=== PATIENT | male | born 1970 | race Caucasian/White ===

== ENCOUNTER 2016-10-29 08:32 | Day surgery (SDC) | payer OTHER ==
[2016-10-23 16:07] VITALS: BMI 24.0
[~2016-10-29] VITALS: Ht 170.2 cm; Wt 70.9 kg
[~2016-10-29 08:32] MED LIST: CEFAZOLIN 2000 MG/60 ML D5W IV SCH; CETI10TA84 PO; FOLI1TAB7 PO; IBUP-103 PO; LACTATED RINGER'S 1000ML 1,000 ML IV SCH; LISI-461 PO; PANT40TA PO; SUCR1TAB29 PO
[2016-10-29] MEDS ORDERED: COLE625T PO (09:01)
[2016-10-29 09:02] VITALS: BP 158/94; PULSE 61; TEMP 37; O2SAT 99; Ht 170.2 cm; Wt 70.9 kg
[2016-10-29 09:17] LABS: BUN/CREATININE RATIO 12.1 (10-20); CALCIUM 8.9 mg/dl (8.5-10.1); CREATININE 1.4 mg/dl (0.60-1.40)
--- NOTE | 2016-10-29 09:37 | History & Physical Bridge Note ---
H&P Re-Evaluation Bridge Note: I have examined the patient, reviewed the History & Physical and in the interval since the performance of the History & Physical I have noted the following changes of clinical significance: No changes noted
[2016-10-29] MEDS ORDERED: ONDANSETRON INJ 2 MG/ML 2 ML VIAL IV PRN (10:00)
[2016-10-29] MEDS ORDERED: EpHEDrine SULFATE INJ 50 MG/ML AMP IV PRN (10:00)
[2016-10-29] MEDS ORDERED: ATROPINE SULFATE 0.1 MG/ML 5ML SYR IV PRN (10:00)
[2016-10-29] MEDS ORDERED: FENTANYL CITRATE INJ 50 MCG/1 ML 2 ML VIAL IV PRN (10:00)
[2016-10-29] MEDS ORDERED: FENTANYL CITRATE INJ 50 MCG/1 ML 2 ML VIAL ONE ×2 (10:15→11:14)
[2016-10-29] MEDS ORDERED: MIDAZOLAM HCL 1 MG/ML 2ML VIAL ONE (10:15)
[2016-10-29] MEDS ORDERED: LIDOCAINE HCL 2% 2 ML VIAL (20MG/ML) ONE (10:15)
[2016-10-29] MEDS ORDERED: PROPOFOL IV EMULSION 10 MG/ML 20 ML VIAL IV ONE (10:15)
[2016-10-29] MEDS ORDERED: ONDANSETRON INJ 2 MG/ML 2 ML VIAL ONE (10:15)
[2016-10-29] MEDS ORDERED: DEXAMETHASONE SOD INJ 4 MG/ML VIAL ONE (10:15)
[2016-10-29] MEDS ORDERED: CONRAY 30% 150ML BOTTLE ONE (10:59)
[2016-10-29] MEDS ORDERED: GLYCOPYRROLATE INJ 0.2 MG/ML VIAL ONE (11:09)
[2016-10-29] MEDS ORDERED: BELLADONNA/OPIUM SUPP 60 MG SUPP PR ONE (11:21)
--- NOTE | 2016-10-29 11:37 | [facility] Operative Report ---
Operative Report Operative Date Oct 29, 2016. Pre-Operative Diagnosis Left hydronephrosis Post-Operative Diagnosis same, Ureteropelvic juntion obstruction Procedure(s) Performed cysto, left retrograde pyelogram, left ureteroscopy , left stent placement Surgeon Dr Alonso Pulling Unit Operator Surgeon(s) none Estimated Blood Loss 2ML Findings smooth tapered narrowing at left UPJ, left hydronephrosis, laterally displaced UOs Fluids 600mL Specimens NONE Drains 6 fr 24 centimeter doubel J stent Anesthesia LMA Complication(s) None Disposition Recovery Room / PACU Indications left new hydronephrosis and renal insufficiency of unknown etiology Description of Procedure Patient was given LMA general anesthesia and placed in lithotomy position. His genitals were prepped and draped in sterile fashion. Time out held with team. I placed a 21 fr rigid cystoscope to bladder. The urethra is remarkable for a 20 fr bulbar thick stricture. Scope passes with pressure. The prostate is small. The UOs are laterally displaced bilaterally. I placed a bentson wire up left distal ureter followed by a 5 fr open ended. I performed a left retrograde pyelogram with dye. His distal mid and upper ureter is plump but smooth, there is a 20mm narrowing at the UPJ with a jet effect of flow into a dilated left renal pelvis. Calyces are blunted significantly. There is no irregularity of contour along the ureter. I passed the wire to kidney and it met a very little resistance going thru the UPJ. I passed a dual lumen cath to calibrate the UO and it is tight there. I passed a flex ureteroscope over the wire to the upper ureter. Under vision I was able to inspect upper ureter to the UPJ but I cannot get thru the UPJ. The mucosa of the upper ureter is normal. I then removed the flex ureteroscope and found the rest of ureter to be normal. I placed a 24 centimeter 6 Fr double J stent with a little resistance getting thru the UPJ. There is brisk efflux after placement. I left bladder empty and concluded case. I placed a belladonna and opium suppository for post-op pain. He transferred to recovery under my escort, in stable condition. Plan: Home today Pyridium for dysuria x 3 days flomax daily oral pain meds as needed repeat bun/cr and a lasix renal scan in 2 weeks. ASA 2 clean contaminated case 1 minute 50 seconds fluoro ancef antibiotic correctional treatment specialist I attest to the content of the Intraoperative Record and any orders documented therein. Any exceptions are noted below.
[2016-10-29] MEDS ORDERED: OXYC-57 PO (11:39)
[2016-10-29] MEDS ORDERED: TAMS0.4C38 PO (11:39)
[2016-10-29] MEDS ORDERED: PHEN-775 PO (11:39)
--- NOTE | 2016-10-29 11:40 | DIAGNOSTIC IMAGING REPORT ---
RETROGRADE INCLUDES KUB CLINICAL HISTORY: Left-sided stent insertion COMPARISON STUDY: No previous studies for comparison. FINDINGS: 8 fluoroscopic spot images are provided for interpretation. 8 seconds of fluoroscopic time was utilized. Intraoperative fluoroscopic spot images reveal retrograde catheterization left ureter with contrast instillation. There is moderate to severe left-sided hydronephrosis with ureteral narrowing at the level of ureteropelvic junction. The final images demonstrate placement of a double-pigtail left-sided nephroureteral stent. The distal pigtail is not fully formed IMPRESSION: Moderate to severe left-sided hydronephrosis in a pattern suggesting a UPJ obstruction. A left-sided nephroureteral stent was placed Electronically signed by: Osvaldo Saba M.D. 10/29/2016 11:39 AM Dictated Date/Time: 10/29/2016 11:37 AM
--- NOTE | 2016-10-29 11:41 | Discharge Instructions ---
Discharge Instructions Date of Service Oct 29, 2016. Admission Reason for Admission: left Hydronephrosis Discharge Discharge Diagnosis / Problem: left ureteropelvic junction obstruction Discharge Goals Goal(s): Improve disease control, Learn about illness Activity Recommendations Activity Limitations: resume your previous activity Lifting Limitations: none Exercise/Sports Limitations: none May Resume Sexual Activity: when tolerated Shower/Bathe: no limitations Driving or Machine Use: resume 1 day after discharge . Instructions / Follow-Up Instructions / Follow-Up urine will be bloody for several days stent may make bladder feel irritated call for fever over 101 take tamsulosin daily take pyridium if having a lot of burning take narcotics for moderate pain Discharge Diet Recommended Diet: Regular Diet Fluid Restriction: None Procedures Procedures Performed: Cystoscopy, Left Ureteroscopy; Stent Placement, Retrograde pyelogram Pending Studies Studies pending at discharge: no Medical Emergencies . Who to Call and When: Medical Emergencies: If at any time you feel your situation is an emergency, please call 911 immediately. . Non-Emergent Contact Non-Emergency issues call your: Urologist ([phone]) Call Non-Emergent contact if: temperature is above 100.5 . . "Provider Documentation" section prepared by Aleyda Alonso. VTE Core Measure Inpt VTE Proph given/why not?: SCD's [place] Drug Monitoring Program Search Results: patient reviewed within database, no issues identified
--- NOTE | 2016-10-29 12:17 | Anesthesiology Progress Note ---
Anesthesia Post Op Note Date & Time Oct 29, 2016 at 12:18 Vital Signs Pain Intensity: 0 Vital Signs Past 12 Hours Date Time Temp Pulse Resp B/P Pulse Ox O2 Delivery O2 Flow Rate FiO2 10/29/16 12:05 36.1 79 16 140/99 93 Room Air 10/29/16 11:55 88 16 144/100 97 Room Air 10/29/16 11:45 88 16 151/98 100 Mask 10 10/29/16 11:35 98 16 155/97 100 Mask 10 10/29/16 11:29 36.3 84 16 151/96 100 Mask 10 10/29/16 09:02 37 61 18 158/94 99 Room Air Notes Mental Status: alert / awake / arousable, participated in evaluation Pt Amnestic to Procedure: Yes Nausea / Vomiting: adequately controlled Pain: adequately controlled Airway Patency, RR, SpO2: stable & adequate BP & HR: stable & adequate Hydration State: stable & adequate Anesthetic Complications: no major complications apparent
[2016-10-29 12:27] VITALS: BP 143/79; PULSE 75; TEMP 36.1; O2SAT 97
[2016-10-29 12:53] VITALS: BP 154/93; PULSE 80; O2SAT 94
[2016-10-29 13:20] VITALS: BP 148/88; PULSE 80; O2SAT 100
[2016-10-29] MEDS ORDERED: NURSING VERBAL MED ORDER ONE ×2 (13:30→14:45)
[2016-10-29] MEDS ORDERED: PHENAZOPYRIDINE HCL 200 MG TAB PO ONE ×2 (13:37→13:45)
[2016-10-29 13:50] VITALS: BP 157/96; PULSE 70; TEMP 36.8; O2SAT 95
[2016-10-29] MEDS ORDERED: HYDROmorphone INJ 2 MG/ML SYR/VIAL ONE (15:00)
== END 2016-10-29 15:20 | disposition home or self-care (01) ==
LOC: C.ACU 08:32
PROVIDERS: ATTEND Urology
DX: N13.30 Unspecified hydronephrosis (principal); N28.9 Disorder of kidney and ureter, unspecified; I10 Essential (primary) hypertension; K22.70 Barrett's esophagus without dysplasia; E80.4 Gilbert syndrome; R10.31 Right lower quadrant pain; R10.32 Left lower quadrant pain